=== PATIENT | male | born 1980 | race Caucasian/White ===

== ENCOUNTER 2018-07-17 00:54 | Emergency (ER) | payer OTHER ==
[2018-07-17 01:04] VITALS: BP 133/81; PULSE 82; TEMP 98; BMI 23.3
--- NOTE | 2018-07-17 01:24 | PDOC ---
History of Present Illness - General Chief Complaint: Substance Abuse Stated Complaint: DETOX Time Seen by Provider: 07/17/18 01:13 History Source: Patient Exam Limitations: No Limitations - History of Present Illness Initial Comments: 37 yo male with no sig pmh is here stating he wants to goto detox. He admits to being worried that he is going to kill himself with all the drugs he is using. He admits to taking heroine earlier today as well as K-2 yesterday. He also admits to occasional cocaine usage. Denies any current suicidal or homicidal ideation. He denies any recent fevers, chills, infections, chest pain, SOB, difficulty breathing, back pain, palpitations. PCP: None Social Hx: See above Allergies: NKA, NKDA Past History - Past Medical History Allergies/Adverse Reactions: Allergies Allergy/AdvReac Type Severity Reaction Status Date / Time No Known Allergies Allergy Verified 07/17/18 01:03 Home Medications: Ambulatory Orders Methadone [Dolophine -] 140 mg PO DAILY 07/17/18 - Suicide/Smoking/Psychosocial Hx Smoking History: Unknown if ever smoked Have you smoked in the past 12 months: No Information on smoking cessation initiated: No Hx Alcohol Use: Yes Drug/Substance Use Hx: Yes Review of Systems - Review of Systems Able to Perform ROS?: Yes Comments:: CONSTITUTIONAL: Absent: fever, no chills, no fatigue EYES: Absent: visual changes ENT: Absent: ear pain, no sore throat CARDIOVASCULAR: Absent: chest pain, no palpitations RESPIRATORY: Absent: cough, no SOB GI: Absent: abdominal pain, no nausea, no vomiting, no constipation, no diarrhea GENITOURINARY: Absent: dysuria, no frequency, no hematuria MUSKULOSKELETAL: Absent: back pain, no arthralgia, no myalgia SKIN: Absent: rash NEURO: Absent: headache *Physical Exam - Vital Signs Last Vital Signs Temp Pulse Resp BP Pulse Ox 98.0 F 82 18 133/81 98 07/17/18 01:03 07/17/18 01:03 07/17/18 01:03 07/17/18 01:03 07/17/18 01:03 - Physical Exam Comments: GENERAL: Well-appearing, well-nourished. No apparent distress. HEENT: Normocephalic, atraumatic. PERRL, EOM intact. CARDIOVASCULAR: Normal S1, S2. Regular rate and rhythm. PULMONARY: Clear to auscultation bilaterally. ABDOMEN: Soft, non-distended, non-tender. EXTREMITIES: Normal ROM in all four extremities. No gross deformities. SKIN: Warm, dry. No rash NEUROLOGICAL: No focal neurological deficits. Moderate Sedation - Procedure Monitoring Vital Signs: Procedure Monitoring Vital Signs Temperature 98.0 F 07/17/18 01:03 Pulse Rate 82 07/17/18 01:03 Respiratory Rate 18 07/17/18 01:03 Blood Pressure 133/81 07/17/18 01:03 O2 Sat by Pulse Oximetry (%) 98 07/17/18 01:03 ED Treatment Course - LABORATORY CBC & Chemistry Diagram: 07/17/18 01:45 07/17/18 01:45 Medical Decision Making - Medical Decision Making 37 yo male with no sig pmh is here stating he wants to goto detox. He admits to being worried that he is going to kill himself with all the drugs he is using. He admits to taking heroine earlier today as well as K-2 yesterday. He also admits to occasional cocaine usage. Plan: Cbc, Cmp, U-tox, admit patient to [facility] for detox. [facility] LOT ASSOCIATE number: [phone] I called up the LOT ASSOCIATE at [facility] - they said they have no male beds right now and he cannot come to [facility] to be admitted until after 8 am. Will DC patient and send him to [facility] at 8 am. *DC/Admit/Observation/Transfer Diagnosis at time of Disposition: Desire for detoxification - Discharge Dispostion Disposition: TRANSFER ACUTE CARE/OTHER HOSP Condition at time of disposition: Stable Decision to Admit order: No - Referrals Referrals: [facility] [place] Internal Med at [place] [Provider Group] - Patient Instructions Printed Discharge Instructions: Detoxification (Alternative Therapy) Additional Instructions: You came into the ER with the desire to go to detox. We spoke with [facility] and they said you can come to their facility at 8 AM. Come back to the ER if you develop a headache, or any other new or worsening concerns. Thank you for coming to the [facility] ED. We hope you feel better soon! Print Language: CROATIAN - Post Discharge Activity
[2018-07-17 01:53] LABS: EOS % 1.2 % (0-4.5); HEMOGLOBIN 13.3 GM/dL (11.7-16.9); LYMPH % 24.4 % (8-40); MCH 31.1 pg (25.7-33.7); MEAN CELL VOLUME 88.9 fl (80-96); MEAN PLT VOLUME 9.6 fl (7.5-11.1); MONO % 11.8 % (3.8-10.2); NEUT % 61.6 % (42.8-82.8); PLATELET COUNT 243 K/MM3 (134-434); RBC 4.27 M/mm3 (4.00-5.60); RDW 13.1 % (11.9-15.9); WHITE BLOOD COUNT 5.7 K/mm3 (4.0-10.0)
[2018-07-17 02:21] LABS: ALBUMIN 3.6 g/dl (3.4-5.0); ALK PHOS 116 U/L (45-117); ANION GAP 6 MMOL/L (8-16); BILIRUBIN,TOTAL 0.4 mg/dL (0.2-1); BLOOD UREA NITROGEN 36 mg/dL (7-18); CALCIUM 8.6 mg/dL (8.5-10.1); CHLORIDE 99 mmol/L (98-107); CO2 30 mmol/L (21-32); CREATININE 1.3 mg/dL (0.55-1.3); GLUCOSE,RANDOM 119 mg/dL (74-106); POTASSIUM 4.1 mmol/L (3.5-5.1); SGOT/AST 48 U/L (15-37); SGPT/ALT 60 U/L (13-61); SODIUM 135 mmol/L (136-145)
[2018-07-17 02:36] LABS: COCAINE, UR NEGATIVE ng/ml (CUTOFF=300); PHENCYCLIDINE,URINE NEGATIVE ng/ml (CUTOFF=25); URINE AMPHETAMINES NEGATIVE ng/ml (CUTOFF=500); URINE BARBITURATES NEGATIVE ng/ml (CUTOFF=200); URINE BENZODIAZEPINES NEGATIVE ng/ml (CUTOFF=200)
[2018-07-17 02:38] LABS: METHADONE, UR POSITIVE ng/ml (CUTOFF=300); OPIATES, URI POSITIVE ng/ml (CUTOFF=300)
--- NOTE | 2018-07-17 03:16 | PDOC ---
Attending Attestation - Resident Resident Name: Steve Aviles - ED Attending Attestation I have performed the following: I have examined & evaluated the patient, The case was reviewed & discussed with the resident, I agree w/resident's findings & plan - HPI HPI: 07/17/18 03:15 Pt is erquesting detox from opiates. He has no other complaints. He has never been here before. We will draw some baseline labs to work him up. - Physicial Exam PE: 07/17/18 03:16 Agree with resident exam - Medical Decision Making 07/17/18 03:16 There are no male beds in [facility]. They are requesting that we send the patient over tomorrow at 8AM
== END 2018-07-17 07:17 | disposition short-term general hospital (02) ==
LOC: JER 00:54
DX: Z13.89 Encounter for screening for other disorder (principal)
CPT/HCPCS: 36415; 80053; 80307; 85025; 99282-25

== ENCOUNTER 2019-05-16 15:02 | Inpatient (IN) | payer OTHER ==
[2019-05-16 15:45] VITALS: BMI 21.7
--- NOTE | 2019-05-16 18:43 | HP ---
"COWS - Scale Resting Pulse: 0= [place] 80 or Below Sweatin=Flushed/Facial Moisture Restless Observation: 1= Difficult to Sit Still Pupil Size: 1= Pupils >than Normal (Pupils = 2 mm) Bone or Joint Aches: 1= Mild Discomfort Runny Nose/ Eye Tearin= Runny Nose/Eyes GI Upset > 30mins: 1= Stomach Cramp Tremor Observation: 2= Slight Tremor Visible Yawning Observation: 1= 1-2x During Session Anxiety or Irritability: 1=Feels Anxious/Irritable Goose Flesh Skin: 0=Smooth Skin COWS Score: 12 CIWA Score - Admission Criteria OASAS Guidelines: Admission for Medically Managed Detox: Requires at least one of the followin. CIWA greater than 12 2. Seizures within the past 24 hours 3. Delirium tremens within the past 24 hours 4. Hallucinations within the past 24 hours 5. Acute intervention needed for co occurring medical disorder 6. Acute intervention needed for co occurring psychiatric disorder 7. Severe withdrawal that cannot be handled at a lower level of care (continued vomiting, continued diarrhea, abnormal vital signs) requiring intravenous medication and/or fluids 8. Admitting History and Physical - Smoking History Smoking history: Unknown if ever smoked Have you smoked in the past 12 months: No - Alcohol/Substance Use Hx Alcohol Use: Yes Admission [facility] Allergies/Adverse Reactions: Allergies Allergy/AdvReac Type Severity Reaction Status Date / Time No Known Allergies Allergy Verified 07/17/18 01:03 History of Present Illness: 38 yo presents w/ heroin and cocaine withdrawal seeking detox. Is considering rehab. JAMIA: 0.0 UTox: + GIGI/MOP Denies seizures, blackouts, overdoses. Heroin use began at age 19. Currently using 4 bags/day IV. States sometimes shares and re-uses needles. Cocaine use began at age 20. Currently using $20/day. IV. (Speed-balls) Past Methadone program, [facility]. Left 02/24/19. Nicotine use began at age 19. Smokes 2-3 cig/day. Denies alcohol use. Longest length of sobriety 10 years. (While incarcerated). PMHx: Denies PMH MHHx: Denies depression. Denies thoughts of harming self or others. SHx: Homeless. Unemployed. Denies legal issues. Search Terms: Kofi Medrano, 1980 Search Date: 05/16/2019 06:38:42 PM The Drug Utilization Report below displays all of the controlled substance prescriptions, if any, that your patient has filled in the last twelve months. The information displayed on this report is compiled from pharmacy submissions to the Department, and accurately reflects the information as submitted by the pharmacies. This report was requested by: Bre Harris | Reference #: [id number] There are no results for the search terms that you entered. Search Terms: Kofi Medrano, 1980 Search Date: 05/16/2019 06:42:32 PM States Searched: [place], [place], [place], [place], [place], [place], [place] The Drug Utilization Report below displays the controlled substance prescriptions, if any, that were dispensed in the indicated state(s). The information displayed on this report is compiled from requests submitted to other states' PMPs, and accurately reflects the information as returned by them. Blank crabtree indicate data not provided by other state. This report was requested by: Bre Harris | Reference #: [id number] Exam Limitations: No Limitations - Ebola screening Have you traveled outside of the country in the last 21 days: No Have you had contact with anyone from an Ebola affected area: No Have you been sick,other than usual withdrawal symptoms: No Do you have a fever: No - Review of Systems Constitutional: Chills, Diaphoresis EENT: reports: Blurred Vision, Nose Congestion Respiratory: reports: No Symptoms reported Cardiac: reports: No Symptoms Reported GI: reports: Abdominal cramping : reports: No Symptoms Reported Musculoskeletal: reports: Back Pain (Chronic intermittent back pain r/t staying in one position too long. No pain at this time) Integumentary: reports: No Symptoms Reported Neuro: reports: Tremors Endocrine: reports: Increased Thirst Hematology: reports: No Symptoms Reported Psychiatric: reports: Orientated x3, Anxious Patient History - Patient Medical History Hx Chronic Obstructive Pulmonary Disease (COPD): No - PPD History Previous Implant?: Yes Documented Results: Negative w/proof Implanted On Prior [facility] Admission?: No PPD to be Administered?: Yes - Smoking Cessation Smoking history: Current every day smoker Have you smoked in the past 12 months: Yes Aproximately how many cigarettes per day: 3 Hx Chewing Tobacco Use: No Initiated information on smoking cessation: Yes 'Breaking Loose' booklet given: 05/16/19 - Substance & Tx. History Hx Alcohol Use: No Hx Substance Use: Yes Substance Use Type: Cocaine, Heroin Hx Substance Use Treatment: Yes (past [facility] (left 01/2019)) - Substances abused Heroin Substance route: Injection Frequency: Daily Amount used: 4bags/daily Age of first use: 19 Date of last use: 05/15/19 Cocaine Substance route: Injection Frequency: Daily Amount used: $20 Age of first use: 20 Date of last use: 05/15/19 Admission Physical Exam [facility] - Vital Signs Vital Signs: Vital Signs - 24 hr 05/16/19 05/16/19 15:41 18:31 Temperature 98.3 F 98.3 F Pulse Rate 75 75 Respiratory 14 14 Rate Blood Pressure 139/86 139/86 - Physical General Appearance: Yes: Mild Distress, Thin, Tremorous (Mild tremors), Sweating (Increased facial moisture) HEENTM: Yes: EOMI, Hearing grossly Normal, Normocephalic, JESSICA (Pupils = 2 mm), Pharynx Normal, Nasal Congestion, Rhinorrhea Respiratory: Yes: Lungs Clear (Pulse Ox = 97 %), Normal Breath Sounds, No Respiratory Distress Neck: Yes: No masses,lesions,Nodules, Supple Breast: Yes: Breast Exam Deferred Cardiology: Yes: Regular Rhythm, Regular Rate, S1, S2 Abdominal: Yes: Non Tender, Flat, Soft, Increased Bowel Sounds Genitourinary: Yes: Within Normal Limits Back: Yes: Normal Inspection Musculoskeletal: Yes: full range of Motion, Gait Steady Extremities: Yes: Normal Capillary Refill, Tremors (Mild tremors) Neurological: Yes: 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 No increased induration, warmth, or erythema at sites.) - Diagnostic (1) Opioid dependence with withdrawal Current Visit: Yes Status: Acute (2) Cocaine dependence, uncomplicated Current Visit: Yes Status: Chronic (3) IVDU (intravenous drug user) Current Visit: Yes Status: Chronic (4) Current nicotine use Current Visit: Yes Status: Chronic Cleared for Admission [facility] - Detox or Rehab [facility] Level of Care: Medically Managed Detox Regimen/Protocol: Methadone Claeared for Rehab Admission: No Breathalyzer - Breathalyzer Breathalyzer: 0 Urine Drug Screen - Test Device Lot number: [id number] Expiration date: 12/31/20 - Control Is test valid?: Yes - Results Drug screen NEGATIVE: No Urine drug screen results: GIGI-Cocaine, MOP-Opiates Inpatient Rehab Admission - Rehab Decision to Admit Inpatient rehab admission?: No"
[2019-05-16] MEDS ORDERED: METHADONE HCL 10 MG TABLET (FOR DETOX USE ONLY) PO ONE ×2 (19:16→22:00)
[2019-05-16] MEDS ORDERED: ACETAMINOPHEN 325 MG TABLET (FP) PO PRN ×2 (19:19)
[2019-05-16] MEDS ORDERED: PROCHLORPERAZINE MALEATE 5 MG TABLET PO PRN (19:19)
[2019-05-16] MEDS ORDERED: MAGNESIUM CITRATE 300 ML BOTTLE PO PRN (19:19)
[2019-05-16] MEDS ORDERED: IBUPROFEN 400 MG TABLET (FP) PO PRN (19:19)
[2019-05-16] MEDS ORDERED: NICOTINE POLACRILEX 2 MG GUM BUC PRN (19:19)
[2019-05-16] MEDS ORDERED: BISMUTH SUBSALICYLATE 524 MG/30 ML UD PO PRN (19:19)
[2019-05-16] MEDS ORDERED: MAG HYDROX/AL HYDROX/SIMETH 30 ML UNIT-DOSE CUP PO PRN (19:19)
[2019-05-16] MEDS ORDERED: MENTHOL/PHENOL 1 EACH UD MM PRN (19:19)
[2019-05-16] MEDS ORDERED: MAGNESIUM HYDROX 2400MG/30ML ORAL SUSPENSION 30 ML CUP PO PRN (19:19)
[2019-05-16] MEDS: THIAMINE HCL 100 MG TABLET (FP) PO SCH (21:05)
[2019-05-16] MEDS: MELATONIN 5 MG TABLETS PO PRN (21:07)
[2019-05-17 09:37] LABS: HEMATOCRIT 46.7 % (35.4-49); HEMOGLOBIN 15.5 GM/dL (11.7-16.9); MCH 30.1 pg (25.7-33.7); MCHC 33.1 g/dl (32.0-35.9); MEAN CELL VOLUME 90.9 fl (80-96); MEAN PLT VOLUME 10.2 fl (7.5-11.1); PLATELET COUNT 293 K/MM3 (134-434); RBC 5.14 M/mm3 (4.00-5.60); RDW 14.1 % (11.9-15.9); WHITE BLOOD COUNT 7.4 K/mm3 (4.0-10.0)
[2019-05-17 09:59] LABS: ALBUMIN 4.1 g/dl (3.4-5.0); BILIRUBIN,TOTAL 0.8 mg/dL (0.2-1); BLOOD UREA NITROGEN 19.9 mg/dL (7-18); CALCIUM 9.3 mg/dL (8.5-10.1); CREATININE 1.2 mg/dL (0.55-1.3); POTASSIUM 3.9 mmol/L (3.5-5.1)
[2019-05-17] MEDS ORDERED: METHADONE HCL 10 MG TABLET PO ONE (10:00)
[2019-05-17] MEDS: PRENATAL VITAMINS W/ FOLIC ACID TABLET (FP) PO SCH (10:44)
[2019-05-17] MEDS ORDERED: METHADONE HCL 10 MG TABLET (FOR DETOX USE ONLY) PO ONE (10:45)
--- NOTE | 2019-05-17 12:53 | EKG ---
Test Reason : Blood Pressure : / mmHG Vent. Rate : 072 BPM Atrial Rate : 072 BPM P-R Int : 158 ms QRS Dur : 092 ms QT Int : 388 ms P-R-T Axes : 064 007 018 degrees QTc Int : 424 ms NORMAL SINUS RHYTHM NORMAL ECG NO PREVIOUS ECGS AVAILABLE Confirmed by Oskar You MD ([id number]) on 05/17/2019 12:53:05 PM Referred By: Confirmed By:Oskar You MD
[2019-05-17 14:48] LABS: URINE APPEARANCE CLEAR; URINE BILIRUBIN NEGATIVE (NEGATIVE); URINE COLOR YELLOW; URINE GLUCOSE (UA) NEGATIVE (NEGATIVE); URINE KETONE NEGATIVE (NEGATIVE); URINE LEUK ESTERASE NEGATIVE (NEGATIVE); URINE NITRITE NEGATIVE (NEGATIVE); URINE PROTEIN NEGATIVE (NEGATIVE)
--- NOTE | 2019-05-17 15:19 | PN ---
BHS COWS - Scale Resting Pulse: 1= [place] 81-100 Sweatin= Chills/Flushing Restless Observation: 1= Difficult to Sit Still Pupil Size: 0= Normal to Room Light Bone or Joint Aches: 2= Severe Diffuse Aches Runny Nose/ Eye Tearin= None GI Upset > 30mins: 1= Stomach Cramp Tremor Observation of Outstretched Hands: 0= None Yawning Observation: 1= 1-2x During Session Anxiety or Irritability: 4=Extreme Anxiety Goose Flesh Skin: 3=Piloerection COWS Score: 14 BHS Progress Note (SOAP) Subjective: Anxious, Stomach Cramping, Chills, Sweating, Hot / Cold Sensations, Body Aches. Objective: PATIENT A & O X 3, OBSERVED AMBULATING ON DETOX UNIT UNASSISTED. IN NO ACUTE DISTRESS. 05/17/19 15:17 Vital Signs Temperature 98.7 F 05/17/19 13:38 Pulse Rate 81 05/17/19 13:38 Respiratory Rate 18 05/17/19 13:38 Blood Pressure 126/88 05/17/19 13:38 O2 Sat by Pulse Oximetry (%) Laboratory Tests 05/17/19 05/17/19 05/17/19 07:50 07:50 07:50 WBC 7.4 RBC 5.14 Hgb 15.5 Hct 46.7 D MCV 90.9 MCH 30.1 MCHC 33.1 RDW 14.1 Plt Count 293 D MPV 10.2 Sodium 140 Potassium 3.9 Chloride 103 Carbon Dioxide 29 Anion Gap 8 BUN 19.9 H Creatinine 1.2 Est GFR (CKD-EPI)AfAm 88.37 Est GFR (CKD-EPI)NonAf 76.25 Random Glucose 94 Calcium 9.3 Total Bilirubin 0.8 AST 42 H ALT 50 Alkaline Phosphatase 106 Total Protein 8.0 Albumin 4.1 Urine Color Urine Appearance Urine pH Ur Specific [place] Urine Protein Urine Glucose (UA) Urine Ketones Urine Blood Urine Nitrite Urine Bilirubin Urine Urobilinogen Ur Leukocyte Esterase RPR Titer Nonreactive 05/17/19 12:00 WBC RBC Hgb Hct MCV MCH MCHC RDW Plt Count MPV Sodium Potassium Chloride Carbon Dioxide Anion Gap BUN Creatinine Est GFR (CKD-EPI)AfAm Est GFR (CKD-EPI)NonAf Random Glucose Calcium Total Bilirubin AST ALT Alkaline Phosphatase Total Protein Albumin Urine Color Yellow Urine Appearance Clear Urine pH 7.0 Ur Specific [place] 1.020 Urine Protein Negative Urine Glucose (UA) Negative Urine Ketones Negative Urine Blood Negative Urine Nitrite Negative Urine Bilirubin Negative Urine Urobilinogen 1.0 Ur Leukocyte Esterase Negative RPR Titer LABS NOTED. Assessment: 05/17/19 15:18 WITHDRAWAL SYMPTOMS. ELEVATED AST LEVEL. Plan: CONTINUE DETOX. INCREASE DAILY PO WATER INTAKE.
[2019-05-17] MEDS: THIAMINE HCL 100 MG TABLET (FP) PO SCH (22:04)
[2019-05-18] MEDS ORDERED: METHADONE HCL 5 MG TABLET (FOR DETOX USE ONLY) PO ONE (10:00)
[2019-05-18] MEDS: PRENATAL VITAMINS W/ FOLIC ACID TABLET (FP) PO SCH (10:31)
[2019-05-18] MEDS: METHOCARBAMOL 500 MG TABLET PO PRN ×2 (10:31→22:04)
[2019-05-18] MEDS ORDERED: cloNIDine HCL 0.1 MG TABLET PO ONE (15:40)
--- NOTE | 2019-05-18 15:56 | PN ---
BHS COWS - Scale Resting Pulse: 0= [place] 80 or Below Sweatin= Chills/Flushing Restless Observation: 0= Sits Still Pupil Size: 0= Normal to Room Light Bone or Joint Aches: 2= Severe Diffuse Aches Runny Nose/ Eye Tearin= None GI Upset > 30mins: 1= Stomach Cramp Tremor Observation of Outstretched Hands: 2= Slight Tremor Visible Yawning Observation: 1= 1-2x During Session Anxiety or Irritability: 2=Irritable/Anxious Goose Flesh Skin: 3=Piloerection COWS Score: 12 BHS Progress Note (SOAP) Subjective: Stomach Cramping, Sweating, Hot / Cold Sensations, Chills, Body Aches, Anxious. Objective: PATIENT A & O X 3, OBSERVED AMBULATING ON DETOX UNIT UNASSISTED. IN NO ACUTE DISTRESS. 05/18/19 15:57 Vital Signs Temperature 98.5 F 05/18/19 13:16 Pulse Rate 63 05/18/19 13:16 Respiratory Rate 16 05/18/19 13:16 Blood Pressure 124/88 05/18/19 13:16 O2 Sat by Pulse Oximetry (%) Laboratory Tests 05/17/19 05/17/19 05/17/19 07:50 07:50 07:50 WBC 7.4 RBC 5.14 Hgb 15.5 Hct 46.7 D MCV 90.9 MCH 30.1 MCHC 33.1 RDW 14.1 Plt Count 293 D MPV 10.2 Sodium 140 Potassium 3.9 Chloride 103 Carbon Dioxide 29 Anion Gap 8 BUN 19.9 H Creatinine 1.2 Est GFR (CKD-EPI)AfAm 88.37 Est GFR (CKD-EPI)NonAf 76.25 Random Glucose 94 Calcium 9.3 Total Bilirubin 0.8 AST 42 H ALT 50 Alkaline Phosphatase 106 Total Protein 8.0 Albumin 4.1 Urine Color Urine Appearance Urine pH Ur Specific [place] Urine Protein Urine Glucose (UA) Urine Ketones Urine Blood Urine Nitrite Urine Bilirubin Urine Urobilinogen Ur Leukocyte Esterase RPR Titer Nonreactive 05/17/19 12:00 WBC RBC Hgb Hct MCV MCH MCHC RDW Plt Count MPV Sodium Potassium Chloride Carbon Dioxide Anion Gap BUN Creatinine Est GFR (CKD-EPI)AfAm Est GFR (CKD-EPI)NonAf Random Glucose Calcium Total Bilirubin AST ALT Alkaline Phosphatase Total Protein Albumin Urine Color Yellow Urine Appearance Clear Urine pH 7.0 Ur Specific [place] 1.020 Urine Protein Negative Urine Glucose (UA) Negative Urine Ketones Negative Urine Blood Negative Urine Nitrite Negative Urine Bilirubin Negative Urine Urobilinogen 1.0 Ur Leukocyte Esterase Negative RPR Titer LABS NOTED. Assessment: 05/18/19 15:57 WITHDRAWAL SYMPTOMS. ELEVATED AST LEVEL. 05/18/19 15:57 Plan: CONTINUE DETOX. CLONIDINE, 0.1 MG PO X 1 DOSE FOR SEVERE GENERAL WITHDRAWAL SYMPTOMS. PRN ROBAXIN FOR BODY ACHES/ MUSCLE SPASMS.
[2019-05-18] MEDS: THIAMINE HCL 100 MG TABLET (FP) PO SCH (22:04)
[2019-05-18] MEDS: MELATONIN 5 MG TABLETS PO PRN (22:04)
[2019-05-19] MEDS ORDERED: METHADONE HCL 10 MG TABLET (FOR DETOX USE ONLY) PO ONE (10:00)
[2019-05-19] MEDS: PRENATAL VITAMINS W/ FOLIC ACID TABLET (FP) PO SCH (10:37)
--- NOTE | 2019-05-19 11:44 | PN ---
BHS COWS - Scale Resting Pulse: 0= [place] 80 or Below Sweatin= Chills/Flushing Restless Observation: 1= Difficult to Sit Still Pupil Size: 0= Normal to Room Light Bone or Joint Aches: 1= Mild Discomfort Runny Nose/ Eye Tearin= None GI Upset > 30mins: 1= Stomach Cramp Tremor Observation of Outstretched Hands: 1= Tremor [place], Not Seen Yawning Observation: 0= None Anxiety or Irritability: 2=Irritable/Anxious Goose Flesh Skin: 0=Smooth Skin COWS Score: 7 BHS Progress Note (SOAP) Subjective: c/o of chills, heroin cravings, anxious Objective: 05/19/19 11:44 Vital Signs Temperature 97 F L 05/19/19 09:20 Pulse Rate 78 05/19/19 09:20 Respiratory Rate 18 05/19/19 09:20 Blood Pressure 129/87 05/19/19 09:20 O2 Sat by Pulse Oximetry (%) Laboratory Last Values WBC 7.4 K/mm3 (4.0-10.0) 05/17/19 07:50 RBC 5.14 M/mm3 (4.00-5.60) 05/17/19 07:50 Hgb 15.5 GM/dL (11.7-16.9) 05/17/19 07:50 Hct 46.7 % (35.4-49) D 05/17/19 07:50 MCV 90.9 fl (80-96) 05/17/19 07:50 MCH 30.1 pg (25.7-33.7) 05/17/19 07:50 MCHC 33.1 g/dl (32.0-35.9) 05/17/19 07:50 RDW 14.1 % (11.9-15.9) 05/17/19 07:50 Plt Count 293 K/MM3 (134-434) D 05/17/19 07:50 MPV 10.2 fl (7.5-11.1) 05/17/19 07:50 Sodium 140 mmol/L (136-145) 05/17/19 07:50 Potassium 3.9 mmol/L (3.5-5.1) 05/17/19 07:50 Chloride 103 mmol/L (98-107) 05/17/19 07:50 Carbon Dioxide 29 mmol/L (21-32) 05/17/19 07:50 Anion Gap 8 MMOL/L (8-16) 05/17/19 07:50 BUN 19.9 mg/dL (7-18) H 05/17/19 07:50 Creatinine 1.2 mg/dL (0.55-1.3) 05/17/19 07:50 Est GFR (CKD-EPI)AfAm 88.37 05/17/19 07:50 Est GFR (CKD-EPI)NonAf 76.25 05/17/19 07:50 Random Glucose 94 mg/dL (74-106) 05/17/19 07:50 Calcium 9.3 mg/dL (8.5-10.1) 05/17/19 07:50 Total Bilirubin 0.8 mg/dL (0.2-1) 05/17/19 07:50 AST 42 U/L (15-37) H 05/17/19 07:50 ALT 50 U/L (13-61) 05/17/19 07:50 Alkaline Phosphatase 106 U/L (45-117) 05/17/19 07:50 Total Protein 8.0 g/dl (6.4-8.2) 05/17/19 07:50 Albumin 4.1 g/dl (3.4-5.0) 05/17/19 07:50 Urine Color Yellow 05/17/19 12:00 Urine Appearance Clear 05/17/19 12:00 Urine pH 7.0 (5.0-8.0) 05/17/19 12:00 Ur Specific [place] 1.020 (1.010-1.035) 05/17/19 12:00 Urine Protein Negative (NEGATIVE) 05/17/19 12:00 Urine Glucose (UA) Negative (NEGATIVE) 05/17/19 12:00 Urine Ketones Negative (NEGATIVE) 05/17/19 12:00 Urine Blood Negative (NEGATIVE) 05/17/19 12:00 Urine Nitrite Negative (NEGATIVE) 05/17/19 12:00 Urine Bilirubin Negative (NEGATIVE) 05/17/19 12:00 Urine Urobilinogen 1.0 mg/dL (0.2-1.0) 05/17/19 12:00 Ur Leukocyte Esterase Negative (NEGATIVE) 05/17/19 12:00 RPR Titer Nonreactive (NONREACTIVE) 05/17/19 07:50 Assessment: 05/19/19 15:33 Aox3 no acute distress full ROM ambulating in the unit no leg edema or erythema withdrawal sx Plan: increase fluids d/c AM to [facility] MAT discussed with patient, benefit and risk Reviewed harm reduction Patient reports plant to go to [facility] upon completing rehab at [facility] Continue to monitor
[2019-05-19] MEDS: METHOCARBAMOL 500 MG TABLET PO PRN (22:24)
[2019-05-19] MEDS: THIAMINE HCL 100 MG TABLET (FP) PO SCH (22:24)
[2019-05-19] MEDS: MELATONIN 5 MG TABLETS PO PRN (22:25)
[2019-05-20] MEDS ORDERED: METHADONE HCL 5 MG TABLET (FOR DETOX USE ONLY) PO ONE (06:00)
[2019-05-20] MEDS: PRENATAL VITAMINS W/ FOLIC ACID TABLET (FP) PO SCH (09:46)
--- NOTE | 2019-05-20 12:20 | DS ---
[facility] Detox Discharge Summary Admission Date: 05/16/19 Discharge Date: 05/20/19 - History Present History: Cocaine Dependence, Opioid Dependence Additional Comments: Patient tolerated detox well, medically stable. Patient to follow up with next level of care at [facility] . Follow up with primary care provider at [facility] [phone]. Pertinent Past History: Vital Signs Temperature 97.8 F 05/20/19 13:47 Pulse Rate 71 05/20/19 13:47 Respiratory Rate 18 05/20/19 13:47 Blood Pressure 117/84 05/20/19 13:47 O2 Sat by Pulse Oximetry (%) Laboratory Last Values WBC 7.4 K/mm3 (4.0-10.0) 05/17/19 07:50 RBC 5.14 M/mm3 (4.00-5.60) 05/17/19 07:50 Hgb 15.5 GM/dL (11.7-16.9) 05/17/19 07:50 Hct 46.7 % (35.4-49) D 05/17/19 07:50 MCV 90.9 fl (80-96) 05/17/19 07:50 MCH 30.1 pg (25.7-33.7) 05/17/19 07:50 MCHC 33.1 g/dl (32.0-35.9) 05/17/19 07:50 RDW 14.1 % (11.9-15.9) 05/17/19 07:50 Plt Count 293 K/MM3 (134-434) D 05/17/19 07:50 MPV 10.2 fl (7.5-11.1) 05/17/19 07:50 Sodium 140 mmol/L (136-145) 05/17/19 07:50 Potassium 3.9 mmol/L (3.5-5.1) 05/17/19 07:50 Chloride 103 mmol/L (98-107) 05/17/19 07:50 Carbon Dioxide 29 mmol/L (21-32) 05/17/19 07:50 Anion Gap 8 MMOL/L (8-16) 05/17/19 07:50 BUN 19.9 mg/dL (7-18) H 05/17/19 07:50 Creatinine 1.2 mg/dL (0.55-1.3) 05/17/19 07:50 Est GFR (CKD-EPI)AfAm 88.37 05/17/19 07:50 Est GFR (CKD-EPI)NonAf 76.25 05/17/19 07:50 Random Glucose 94 mg/dL (74-106) 05/17/19 07:50 Calcium 9.3 mg/dL (8.5-10.1) 05/17/19 07:50 Total Bilirubin 0.8 mg/dL (0.2-1) 05/17/19 07:50 AST 42 U/L (15-37) H 05/17/19 07:50 ALT 50 U/L (13-61) 05/17/19 07:50 Alkaline Phosphatase 106 U/L (45-117) 05/17/19 07:50 Total Protein 8.0 g/dl (6.4-8.2) 05/17/19 07:50 Albumin 4.1 g/dl (3.4-5.0) 05/17/19 07:50 Urine Color Yellow 05/17/19 12:00 Urine Appearance Clear 05/17/19 12:00 Urine pH 7.0 (5.0-8.0) 05/17/19 12:00 Ur Specific [place] 1.020 (1.010-1.035) 05/17/19 12:00 Urine Protein Negative (NEGATIVE) 05/17/19 12:00 Urine Glucose (UA) Negative (NEGATIVE) 05/17/19 12:00 Urine Ketones Negative (NEGATIVE) 05/17/19 12:00 Urine Blood Negative (NEGATIVE) 05/17/19 12:00 Urine Nitrite Negative (NEGATIVE) 05/17/19 12:00 Urine Bilirubin Negative (NEGATIVE) 05/17/19 12:00 Urine Urobilinogen 1.0 mg/dL (0.2-1.0) 05/17/19 12:00 Ur Leukocyte Esterase Negative (NEGATIVE) 05/17/19 12:00 RPR Titer Nonreactive (NONREACTIVE) 05/17/19 07:50 PATIENT AOX3 NO ACUTE DISTRESS EENT WML FULL ROM NO GAIT DISTURBANCE NO EDEMA, NO ERYTHEMA - Physical Exam Results Vital Signs: Vital Signs Temperature 97.4 F L 05/20/19 09:28 Pulse Rate 82 05/20/19 09:28 Respiratory Rate 18 05/20/19 09:28 Blood Pressure 122/93 05/20/19 09:28 O2 Sat by Pulse Oximetry (%) - Treatment Hospital Course: Detox Protocol Followed, Detoxed Safely, Responded well, Discharged Condition Good, Rehab Referral Accepted Patient has Accepted a Rehab Referral to: [facility] - Diagnosis (1) Desire for detoxification Status: Acute (2) Opioid dependence with withdrawal Status: Acute (3) Cocaine dependence, uncomplicated Status: Chronic (4) Current nicotine use Status: Chronic (5) IVDU (intravenous drug user) Status: Chronic - AMA Did Patient Leave Against Medical Advice: No
[2019-05-20 13:48] VITALS: BP 117/84; PULSE 71; TEMP 97.8
== END 2019-05-20 15:00 | disposition other institution (70) | DRG 773 ==
LOC: YASAS 15:02 → Y3N 19:54
PROVIDERS: ADMIT Allergy & Immunology; ATTEND Allergy & Immunology
PROC: HZ2ZZZZ Detoxification Services for Substance Abuse Treatment (ICD-10-PCS; principal; 2019-05-16)
DX: F11.23 Opioid dependence with withdrawal (principal); F14.20 Cocaine dependence, uncomplicated; F17.210 Nicotine dependence, cigarettes, uncomplicated; R74.0 Nonspecific elevation of levels of transaminase and lactic acid dehydrogenase [LDH]
CPT/HCPCS: 36415; 80053; 81003; 85027; 86593; 93005; 93010; J0735